=== PATIENT | male | born 1955 | race Caucasian/White ===

== ENCOUNTER 2023-07-27 18:50 | Emergency (ER) | payer MEDICARE, MEDICAID, SELFPAY ==
[2023-07-27 19:03] VITALS: BP 131/75; PULSE 80; RESP 18; TEMP 37; O2SAT 100
--- NOTE | 2023-07-27 19:31 | ED.GENADULT ---
HPI - General Adult General Chief complaint: Skin/Abscess/Foreign Body Stated complaint: Fluid Retention Time Seen by Provider: 07/27/23 19:20 Source: patient and other (friend) Mode of arrival: ambulatory Limitations: no limitations History of Present Illness HPI narrative: 67 year old male accompanied by friend with complaints of swelling to his lower extremities, pain and drainage to his left arm and upper right arm.Patient reports that he was at [facility] in ED for his same complaints 2 days ago and states he had to leave because his ride had to leave and he got one dose of antibiotics Patient reports that his symptoms have increased for the past week. He has black necrotic tissue on his upper arms pulses palpable radially. Patient admits to IV drug abuse and admits to shooting Cocaine and Fentanyl this morning.Patient reports that he has history of CHF, irregular heart beat,prostatitis, poor historian. Patient reports that they were suppose to fax his reports to us. Patient lower extremities are swollen with hardened tissues unable to obtain pedal pulses by doppler. MD complaint: swelling and infection to his upper arms bilateral with weeping drainage Onset (ago): week(s) (increased symptoms for 1 week) Severity scale (1-10): 6 Treatments prior to arrival: other (cleaning with soap and water) Related Data Home Medications Medication Instructions Recorded Confirmed No Home Medications 07/27/23 07/27/23 Allergies Allergy/AdvReac Type Severity Reaction Status Date / Time Iodinated Contrast Media Allergy Severe Seizure Verified 07/27/23 19:32 Review of Systems Review of Systems: CONSTITUTIONAL: Denies fever, chills, or sweats. EYES: Denies visual changes, redness, or discharge. ENT: Denies rhinorrhea, congestion, sore throat, or otalgia. CARDIOVASCULAR: Denies chest pain, palpitations, or edema. RESPIRATORY: Denies cough or dyspnea. GASTROINTESTINAL: Denies abdominal pain, nausea, vomiting, or diarrhea. GENITOURINARY: Denies dysuria or hematuria. SKIN: Abscess to upper arms bilaterally with tissue red and swollen and necrotic areas noted, weeping drainage. bilateral legs swollen MUSCULOSKELETAL: Denies back pain,positive for left upper arm pain or myalgia. NEUROLOGIC: Denies headache, numbness, or weakness. PSYCHIATRIC: Denies anxiety or depression. All systems reviewed & are unremarkable except as noted in HPI and below PMFSH Past Medical History Medical History Abscess CHF exacerbation IV drug abuse Prostatitis Social History Social History (Updated 07/27/23 @ 20:01 by Georgina Dai NP) Smoking status: Current every day smoker Tobacco type: cigarettes Alcohol intake: unknown Substance use: current Substance use type: IV drugs Last use: Cocaine and Fentanyl this morning Comments At time of signature, agree with nursing past medical, surgical, social and family history. There is no relevant family history pertinent to the presenting complaint Exam Narrative: GENERAL:Chronic ill appearing, fair nourished, and in no acute distress. HEAD: Normocephalic, atraumatic. EYES: PERRLA and EOMI. ENT: Nares clear, no rhinorrhea or epistaxis. Mucous membranes moist.TM's normal throat pink with no swelling NECK: Supple. no acute lymphadenopathy CHEST: Clear to auscultation. No respiratory distress.SAO2 100% on room air HEART: Regular rate and rhythm. No murmur heard. unable to obtain pedal pulses per doppler,palpable radial pulses ABDOMEN: Soft, nontender, nondistended, normal active bowel sounds. EXTREMITIES: Normal range of motion.Bilateral pedal edema noted knees down, SKIN: Warm, dry, abscess to bilateral upper arm Left arm noted necrotic tissue with yellowish drainage from wound, patient reports pain to left upper am with noted redness, lower legs area swollen and firm with hardened tissue areas, unable to find pedal pulses per Doppler
== END 2023-07-27 20:19 | disposition short-term general hospital (02) ==
PROVIDERS: Emergency Provider Registered Nurse
DX: L02.414 Cutaneous abscess of left upper limb (principal); L02.413 Cutaneous abscess of right upper limb; R60.0 Localized edema; F14.10 Cocaine abuse, uncomplicated; F11.10 Opioid abuse, uncomplicated; I50.9 Heart failure, unspecified; F17.210 Nicotine dependence, cigarettes, uncomplicated
CPT/HCPCS: 99212; G0463